=== PATIENT | female | born 1990 | race Caucasian/White ===

== ENCOUNTER 2018-10-02 14:01 | Emergency (ER) | payer MEDICAID ==
[~2018-10-02] VITALS: Ht 160 cm; Wt 62.6 kg
[2018-10-02 14:15] VITALS: BP 109/52
[2018-10-02] MEDS ORDERED: LIDOCAINE-MPF 1%, 5ML ONE (14:55)
== END 2018-10-02 16:02 | disposition home or self-care (01) ==
LOC: ED 15:48
DX: S61.412A Laceration without foreign body of left hand, initial encounter (principal); F17.200 Nicotine dependence, unspecified, uncomplicated; X78.1XXA Intentional self-harm by knife, initial encounter; Y93.89 Activity, other specified; Y92.009 Unspecified place in unspecified non-institutional (private) residence as the place of occurrence of the external cause; Y99.8 Other external cause status
CPT/HCPCS: 12001; 12041; 99283; 99284

== ENCOUNTER 2019-03-19 09:31 | Emergency (ER) | payer MEDICAID ==
[~2019-03-19] VITALS: Ht 157.5 cm; Wt 70.0 kg
--- NOTE | 2019-03-19 09:53 | NUR ---
BIB EMS FOR HEROIN OD. EMS APPLIED O2, NO NARCAN NEEDED. PT IS A&OX4 AND FEELS EMBARASSED FOR HER ACTIONS. PT WAS IN RESIDENTIAL FOR 2 MONTHS, CLEAN, AND REALEASED YESTERDAY. PT RELAPSED. SHOT UP IN HER LEFT AC. AT BEDSIDE. FIRE SPRINKLER FITTER APPLIED. 2 L O2 APPLIED. VS STABLE.
--- NOTE | 2019-03-19 10:15 | NUR ---
AMBULATED TO BATHROOM FOR UA W STEADY GATE.
[2019-03-19] MEDS ORDERED: TRAZ-137 PO (10:52)
[2019-03-19] MEDS ORDERED: ZIPR20CA2 PO (10:52)
--- NOTE | 2019-03-19 11:24 | NUR ---
MEAL TRAY ORDERED. DISCUSSED POC W PT THAT SHE WILL BE DC WHEN FEELING MORE ALERT
--- NOTE | 2019-03-19 12:14 | NUR ---
PT AMBULATED TO BATHROOM . GIVEN MEAL TRAY. VS STABLE. PT ALERT
--- NOTE | 2019-03-19 12:22 | NUR ---
REQUESTING DIMMER BOARD OPERATOR. DIMMER BOARD OPERATOR CALLED.
[2019-03-19 12:34] VITALS: BP 121/68
--- NOTE | 2019-03-19 13:05 | NUR ---
SUPERVISOR LAST MODEL DEPARTMENT AT BEDSIDE. DC PAPERS READY
== END 2019-03-19 13:17 | disposition home or self-care (01) ==
LOC: ED 12:45
DX: T40.1X1A Poisoning by heroin, accidental (unintentional), initial encounter (principal); Y92.89 Other specified places as the place of occurrence of the external cause
CPT/HCPCS: 36415; 71045; 80053; 84703; 85025; 99283